=== PATIENT | male | born 1995 | race Two or more races ===

== ENCOUNTER 2020-10-02 04:20 | Emergency (ER) | payer OTHER ==
[~2020-10-02] VITALS: Ht 175.3 cm; Wt 65.8 kg
--- NOTE | 2020-10-02 04:20 | NUR ---
Pt to er bb ra for etoh. No immediate signs of distress noted. pt vital signs normal. Pt arousable to painful stimuli. Breaths equal and unlabored. Will cont to monitor pt.
[2020-10-02] MEDS ORDERED: DEXTROSE 50%-WATER 50 ML DISP.SYRIN ONE (04:40)
[2020-10-02] MEDS ORDERED: HALOPERIDOL LACTATE INJ 5 MG/ML VIAL ONE (04:57)
[2020-10-02] MEDS ORDERED: HALOPERIDOL LACTATE INJ 5 MG/ML VIAL IM ONE (05:00)
[2020-10-02] MEDS ORDERED: DEXTROSE 50%-WATER 50 ML DISP.SYRIN IVP ONE (05:00)
--- NOTE | 2020-10-02 05:00 | NUR ---
While attempting to start iv, pt woke up and became aggressive towards staff, trying to kick and spit at nurses. Dr Del Valle notified and medicated as ordered.
--- NOTE | 2020-10-02 07:00 | NUR ---
pt sleeping resp even labored vss. repostioned for comfort too slwwping to eat at this time
--- NOTE | 2020-10-02 09:20 | NUR ---
cont to [facility] pt stable sitter with pt
--- NOTE | 2020-10-02 12:23 | NUR ---
PT URINATED IN BED . PT CLEANED STILL SLEEPING VSS
--- NOTE | 2020-10-02 16:50 | NUR ---
PT EASLY AROUDED YELLS AND FALLS BACK TO SLEEP
--- NOTE | 2020-10-02 21:23 | NUR ---
Pt arousable to voice, pt sts he does not remember what happened however does endorse marijuana amdn methamphetamine use. Will continut to monitor pt.
--- NOTE | 2020-10-03 06:00 | NUR ---
PATIENT IS AMBULATORY WITH A STEADY GAIT.
--- NOTE | 2020-10-03 06:00 | NUR ---
Patient discharged to home in stable condition. Written and verbal after care instructions given. Patient verbalizes understanding of instruction.
[2020-10-03 06:01] VITALS: BP 133/87
== END 2020-10-03 06:02 | disposition home or self-care (01) ==
LOC: EDBD 04:22 → ER 04:22
DX: F10.129 Alcohol abuse with intoxication, unspecified (principal); R45.1 Restlessness and agitation; Y90.9 Presence of alcohol in blood, level not specified
CPT/HCPCS: 82962 ×2; 96372; 99285; J1630